=== PATIENT | male | born 1980 | race Caucasian/White ===

== ENCOUNTER 2022-10-18 05:31 | Emergency (ER) | payer MEDICAID, SELFPAY ==
[2022-10-18 05:37] VITALS: BP 150/102; PULSE 70; RESP 18; TEMP 36.9; O2SAT 98; BMI 31.3
--- NOTE | 2022-10-18 06:32 | ED.DENTAL ---
HPI - Dental/Oral General Chief complaint: Dental/Oral Stated complaint: Toothache Time Seen by Provider: 10/18/22 06:32 Source: patient Mode of arrival: ambulatory Limitations: no limitations History of Present Illness HPI Narrative: 41 yo male presenting with left upper dental pain for the last week. He states he has 2 teeth that are infected. He saw his dentist 4 days ago and was prescribed amoxicillin with no improvement. He states the pain is keeping him up at night. No fevers, chills, difficulty opening the jaw, facial swelling. MD Complaint: tooth pain Location: Tooth # (13/14) Onset (ago): week(s) Duration: constant Severity: severe Relieving factors: nothing Context: history of dental caries and poor dental care Associated symptoms: gum swelling Treatment prior to arrival: oral analgesic Related Data Previous Rx's Medication Instructions Recorded clindamycin HCl 300 mg capsule 300 mg PO Q6H 7 days #28 caps 10/18/22 hydrocodone 5 mg-acetaminophen 325 1 tab PO Q6H PRN severe pain 10/18/22 mg tablet (scale score 7-10) #8 tabs ibuprofen 800 mg tablet 800 mg PO Q8H PRN pain #14 tabs 10/18/22 Allergies Allergy/AdvReac Type Severity Reaction Status Date / Time morphine [MORPHINE] AdvReac Unknown MEMORY LOSS Unverified 11/07/19 15:42 morphine Allergy Unknown Unknown Uncoded 10/18/22 05:40 Review of Systems Review of Systems: Yes all other systems are reviewed and are negative PMFSH Social History Social History Advance Directives: No Advance Directives Information Provided: Yes Physical Exam Vital Signs: Vital Signs: Last Vital Signs Temp 97.9 F 10/18/22 06:43 Pulse 70 10/18/22 06:43 Resp 18 10/18/22 06:43 BP 149/99 H 10/18/22 06:43 Pulse Ox 96 10/18/22 06:43 O2 Del Method Room Air 10/18/22 06:43 BMI result Body Mass Index 31.3 Appearance: Alert. Oriented X3. No acute distress. HEENT: normal external inspection. no facial swelling. poor dentition with multiple decayed teeth. left upper teeth with tenderness of #13 and 14 with associated gingival tenderness, mild swelling, no fluctuance appreciated. no trismus Neck: normal inspection, no swelling CVS: Normal heart rate and rhythm. Pulses normal. Respiratory: No respiratory distress. Skin: Skin warm and dry. Normal skin color. Normal skin turgor. No rashes. Extremities: normal inspection x4, no joint swelling Neuro: Oriented X 3. grossly normal, nonfocal Medical Decision Making Medical Decision Making MDM Narrative: 41 yo male presenting with dental infection. already on amoxicillin x4 days. no trisumus or neck swelling on exam. no palpable fluctuance to indicate I&D today. will start clindamycin, nSAID and norco for severe pain he will follow up with his dentist monday stable for d/c home and outpatient follow up with dental Differential Diagnosis Differential Diagnoses: The differential diagnosis associated with the presentation includes dental abscess, toothache, dental caries External Record Review External record reviewed: Prior outpatient labs Tests considered The following testing was considered but not selected: CT scan of the facial bones considered but given exam without facial swelling, deferred today Prescription Management I considered prescription management with: Pain Medication and Antibiotic Critical Care Time Critical Care Time Critical Care Time: No Discharge Plan Discharge Clinical Impression: Toothache Patient Disposition: Home, Self-Care Instructions: Toothache (ED) Additional Instructions: follow up with your dentist as soon as possible take the prescribed anti-inflammatory medication every 8 hours with food recommend tylenol 975 mg every 8 hours as well take the prescribed narcotic pain medication as needed for severe pain only. do not drive after taking this medication If you develop new or worsening symptoms call 911 or come back to the ER for further evaluation. Prescriptions: New clindamycin HCl 300 mg capsule 300 mg PO Q6H 7 Days Qty: 28 0RF ibuprofen 800 mg tablet 800 mg PO Q8H PRN (Reason: pain) Qty: 14 0RF hydrocodone-acetaminophen 5-325 mg tablet 1 tab PO Q6H PRN (Reason: severe pain (scale score 7-10)) Qty: 8 0RF Rx Instructions: Partial Fill upon patient request. Interventions: ED Discharge Assessment Last Done: 10/18/22 07:12 Discharge Date/Time: 10/18/22 07:12
--- OUTSIDE RECORDS SUMMARY | 2022-10-18 06:40 | XMS_ITS | Continuity of Care Document ---
Author Name Unknown Organization [facility] Address [address] [place] [address]- Care Team Providers Care Police Lieutenant Name Role Phone Toney Samayoa Bem, MD Primary Care Physician Unavailable Encounter [facility] Date(s): 08/05/21 - 09/04/[address] [address] Attending Physician: Beau BENOIT, Ana Paula Banks Referring Physician: Ana Paula Yanez MD Allergies, Adverse Reactions, Alerts Substance Reaction Severity Status aspirin ASTHMA Active morphine MEMORY LOSS Active Medications Albuterol Inhalation, Every 6 hours, PRN Wheezing/Shortness of Breath, 0 Refills, Maintenance, Inhaler Start Date: 01/26/12 Status: Ordered Albuterol 90 mcg Inhaler See Instructions, Scheduled / PRN, 1, units, 1, 0, 1, 12/30/07 10:04:57, Wheezing/Shortness of Breath, Two puffs inhalation Every 4 hours as needed for SOB, ADS OPPTHS Start Date: 12/30/07 Status: Ordered Flovent HFA 2, puffs, Inhalation, 2 times a day, 1 each, 1, 1, 12/30/07 10:07:35, Print JOSE LUIS Number, ADS OPPTHS,[id number], Constant Indicator Start Date: 12/30/07 Status: Ordered Lamictal 100 mg oral tablet See Instructions, 1 tablet By Mouth for 7 days then titrate at the MD's discretion, # 7 tablet, 0 Refills, Maintenance Start Date: 01/26/12 Status: Ordered Lamictal 25 mg oral tablet See Instructions, 2 tablets for a total of 50 mg By Mouth, daily for next 14 days, # 2 tablet, 0 Refills, Maintenance Start Date: 01/26/12 Status: Ordered lamotrigine 25 mg oral tablet See Instructions, 1 tablet daily By Mouth for the first 10 days., # 10 tablet, 0 Refills, Maintenance, Tablet Start Date: 01/26/12 Status: Ordered Mometasone 220, mcg, Inhalation, 2 times a day, 1, each, 2, 0, 2, 12/30/07 10:28:22, 1 puff two times a day, Print JOSE LUIS Number, 

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
[2022-10-18 06:43] VITALS: BP 149/99; PULSE 70; RESP 18; TEMP 36.6; O2SAT 96
== END 2022-10-18 07:12 | disposition home or self-care (01) ==
PROVIDERS: Emergency Provider Emergency Medicine; PCP Internal Medicine
DX: K08.89 Other specified disorders of teeth and supporting structures (principal)
CPT/HCPCS: 99283

== ENCOUNTER 2023-10-28 06:14 | Emergency (ER) | payer OTHER, SELFPAY ==
[2023-10-28 06:27] VITALS: BP 137/94; PULSE 70; RESP 18; TEMP 36.8; O2SAT 95; BMI 32.1
[2023-10-28 06:41] LABS: MANUAL DIFF FLAG NO
[2023-10-28 06:54] LABS: Basophils Absolute Auto 0.1 X10*3/uL (0.0-0.2); Basophils Percent Auto 0.9 % (0-2); Eosinophils Absolute Auto 0.2 X10*3/uL (0.0-0.4); Eosinophils Percent Auto 3.1 % (0-4); Hemoglobin 13.8 g/dl (14.0-18.0); Imm Gran Abs Auto 0.02 X10*3/uL (0.00-0.03); Imm Gran Pct Auto 0.3 % (0.0-0.4); Lymphocytes Absolute Auto 2.1 X10*3/uL (1.2-4.9); Lymphocytes Percent Auto 32.4 % (20-40); Mean Corpuscular HGB Conc 32.9 g/dl (31.0-36.0); Mean Corpuscular Hemoglobin 26.6 pg (27.0-33.0); Mean Corpuscular Volume 81.1 fL (80.0-98.0); Mean Platelet Volume 9.4 fL (9.4-12.4); Monocytes Absolute Auto 0.6 X10*3/uL (0.1-1.2); Monocytes Percent Auto 9.6 % (2-11); Neutrophils Absolute Auto 3.4 x10*3/uL (2.0-8.3); Neutrophils Percent Auto 53.7 % (45-73); Platelet Count 299 X10*3/uL (160-400); Red Blood Count 5.18 X10*6/uL (4.60-5.80); Red Cell Distribution Width 13.3 % (11.0-16.0); White Blood Count 6.4 X10*3/uL (4.8-10.8)
[2023-10-28 06:56] LABS: Alanine Aminotransferase 42 U/L (0-40); Albumin Level 4.1 g/dL (3.5-5.0); Alkaline Phosphatase 82 U/L (39-117); Anion Gap 11 (12-20); Aspartate Amino Transferase 23 U/L (5-37); Bilirubin Total 0.9 mg/dL (0.0-1.0); Blood Urea Nitrogen 17 mg/dL (9-16); Calcium 8.7 mg/dL (8.4-10.2); Carbon Dioxide 25 mmol/L (22-29); Chloride 106 mmol/L (96-108); Creatinine Clr Calc Pharmacy 110.1; Estimated Glomerular Filt Rate > 60; Glucose Random 104 mg/dL (60-115); Potassium 3.6 mmol/L (3.3-5.1); Sodium 138 mmol/L (135-145)
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
[2023-10-28 07:24] LABS: Influenza A PCR NEGATIVE (Negative); Influenza B PCR NEGATIVE (Negative); Resp Syncy Virus RNA Qual PCR NEGATIVE (Negative); SARS COV2 PCR INHOUSE NEGATIVE (Negative)
[2023-10-28 07:52] VITALS: PULSE 64; RESP 18; O2SAT 99
[2023-10-28] MEDS: predniSONE 20 MG TABLET 60 MG PO (07:52)
[2023-10-28] MEDS: Albuterol/Iprat 2.5/0.5MG 3 ML AMPUL.NEB INHALE (07:52)
[2023-10-28 08:00] VITALS: BP 150/78; PULSE 75; RESP 19; TEMP 36.9; O2SAT 95
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
--- NOTE | 2023-10-28 10:11 | PC.NURSE ---
This nurse informed by another RN that patient exited room and left ED . Patient did not have IV access. Provider notified, stating he will call patient
== END 2023-10-28 10:12 | disposition home or self-care (01) ==
PROVIDERS: Emergency Provider Emergency Medicine Emergency Medical Services
DX: J45.901 Unspecified asthma with (acute) exacerbation (principal); Z03.818 Encounter for observation for suspected exposure to other biological agents ruled out; R06.02 Shortness of breath
CPT/HCPCS: 0241U; 36415; 80053; 85025; 94640; 99284

== ENCOUNTER 2024-11-23 11:02 | Emergency (ER) | payer OTHER, SELFPAY ==
--- OUTSIDE RECORDS SUMMARY | 2021-01-19 16:40 | XMS_ITS | Encounter Summary ---
Author Organization [facility] Address [address] [place] [id number] Phone Care Team Providers Care Assessment Expert Name Role Phone Pcp, Unknown Primary Care Provider Unavailabl e Encounter Details Date Type Department Care Team (Late st Contact Info) Description 01/19/2021 3:40 PM EST Hospital Encounter [facility] [address] [place] [id number] Gloria Black CNP [address] [place] [address] Social History Tobacco Use Types Packs/Day Years Used Date Smoking Tobacco: Former Cigarettes 0.3 12 04 000 - 2020 Smokeless Tobacco: Never Alcohol Use Standard Drinks/Week Comments Not Currently 0 (1 standard drink = 0.6 oz pur e alcohol) Child or Family Care Answer Date Record ed Do you have problems with on e of the following making it difficult for you to work, study, or receive health care? No 09/15/2023 Education Answer Date Recorded Are you interested in help w ith more adult education (for example, completing high school, GED, job training, learning the [place] language, technical skills, or developing parenting skills)? No 09/15/2023 Are you concerned about learning? Not on file 09/15/2023 No 09/15/2023 Yes 09/15/2023 Food Answer Date Recorded Within the past 6 months we worried whether our food would run out before we got money to buy more. Never True 09/15/2023 Within the past 6 months the food we bought just didn't last and we didn't have enough money to get more. Never True Residential Stability Answer Date Recor ded What is your housing situation today? I have bela anderson 09/15/2023 How many times have you move d in the past 12 months? Zero (I did not move) 09/15/2023 Paying for Meds Answer Date Recorded Do you have trouble paying for medicines? No 09/15/2023 Paying Utility Bills Answer Date Record ed Do you have trouble paying your heating or elect ricity bill? No 09/15/2023 Transportation Answer Date Recorded Has the lack of transportati on kept you from medical appointments or from getting medications? No 09/15/2023 Unemployment Answer Date Recorded Are you currently unemployed or working on a part-time or temporary basis, and looking for work? No 09/15/2023 Digital Access Answer Date Recorded No 09/15/2023 Yes 09/15/2023 Do you have reliable internet access at home? Ye s 09/15/2023 Do you have a device (e.g., phone, tablet, computer) with a working camera? Yes 09/15/2023 Intimate Partner Violence Answer Date R ecorded Denied Basic Needs Not on file 09/15/2023 In the past 12 months have y ou been in a relationship with a person who hurts, threatens, or tries to control you? No 09/15/2023 Worried food would run out Not on file 09/14 In the past 12 months have y ou been in a relationship with a person who hurts, threatens, or tries to control you? No 09/15/2023 Sex and Gender Information Value Date Recorded Sex Assigned at Not on file Legal Sex Male 2:30 PM EST Gender Identity Not on file Sexual Orientation Not on file documented as of this encounter Plan of Treatment Upcoming Encounters Date Type Department Care Team (Late st Contact Info) Description 01/06/2025 11:00 AM EST Office Visit [facility] [address] [place] [address] Garth Correa MD [address] [place] [address] documented as of this encounter Procedures Procedure Name Priority Date/Time Associated Diagnosis Comments XR RIBS 3 OR MORE VIEWS WITH PA CHEST (LEFT) Urgent/patient waiting 01/19/2021 3:54 PM EST Rib pain on left side documented in this encounter Results * XR RIBS 3 OR MORE VIEWS WITH PA CHEST (LEFT) (01/19/2021 3:54 PM EST) Anatomical Region Laterality Modality Chest Computed Radiogr aphy 01/19/2021 4:09 PM EST Impressions 01/19/2021 4:24 PM EST No displaced rib fracture. ATTESTATION: Heraclio Mcdaniel as teaching physician, have reviewed the images for this case and if necessary edited the report originally created by Meek Beck. Narrative 01/19/2021 4:24 PM EST XR RIBS 3 OR MORE VIEWS WITH PA CHEST (LEFT) COMPARISON: None. FINDINGS: No displaced rib fracture. PA evaluation of the chest demonstrates no focal consolidation, pleural effusion, pulmonary edema, or pneumothorax. Cardiomediastinal silhouette is normal. Procedure Note Heraclio Finnegan MD - 01/19/2021 XR RIBS 3 OR MORE VIEWS WITH PA CHEST (LEFT) COMPARISON: None. FINDINGS: No displaced rib fracture. PA evaluation of the chest demonstrates no focal consolidation, pleuraleffusion, pulmonary edema, or pneumothorax. Cardiomediastinal silhouetteis normal. IMPRESSION: No displaced rib fracture. ATTESTATION: Heraclio Mcdaniel as teaching physician, have reviewed theimages for this case and if necessary edited the report originally createdby Meek Beck. Gloria Black ASSOCIATE DIRECTOR OF BIOSTATISTICS IMG XR CHEST Final Resul t documented in this encounter Visit Diagnoses Not on filedocumented in this encounter Care Teams Assessment Expert Relationship Specialty Start Date End Date Pcp, Unknown PCP - General 01/19/21 09/14/23 documented as of this encounter Additional Source Comments The information contained in this document represents components of the legal health record. It is not the complete legal health record.[facility]
[2024-11-23 11:20] VITALS: BP 163/79; PULSE 97; RESP 20; TEMP 36.4; O2SAT 97; BMI 31.3
--- NOTE | 2024-11-23 11:22 | ED_ITS ---
HPI - General Adult General Chief complaint: General Medical Stated complaint: L arm pain, high blood pressure Related Data Previous Rx's ?Medication ?Instructions ?Recorded clindamycin HCl 300 mg capsule 300 mg PO Q6H 7 days #2 8 caps 10/18/22 hydrocodone 5 mg-acetaminophen 325 1 tab PO Q6H PRN se armin pain 10/18/22 mg tablet (scale score 7-10) #8 tabs ibuprofen 800 mg tablet 800 mg PO Q8H PRN pain #14 t abs 10/18/22 fluticasone 250 mcg-salmeterol 50 1 inh inhalation Q12 H #60 ea 10/28/23 mcg/dose blistr powdr for inhalation (Advair Diskus) prednisone 20 mg tablet 60 mg (3 x 20 mg) PO DAILY 5 days 10/28/23 #15 tabs Allergies Allergy/AdvReac Type Severity Reaction Status Date / Time morphine (MORPHINE) AdvReac Unknown MEMORY LOSS Verified 11/23/24 11:28 morphine Allergy Unknown Unknown Uncoded 10/28/23 06:28 [facility] Social History Social History Alcohol intake: former Advance Directives: No Advance Directives Information Provided: No Do you have a plan to hurt others: No Plan Physical Exam ED Vital Signs: Vital Signs - 24 hr 11/23/24 11:20 Temperature 97.5 F Pulse Rate 97 Respiratory Rate 20 Blood Pressure 163/79 H Pulse Oximetry 97 Oxygen Delivery Method Room Air BMI result Body Mass Index 31.3 Course Course Course Narrative: Medical screening exam performed. Please refer to detailed history, exam, evaluation, and management by primary provider. 44-year-old who has a history of postconcussive syndrome, presents for evaluation of headache, hypertension and alcohol and cocaine use last night. Patient also reporting numbness and tingling of the left arm. Labs and imaging ordered. JS Reevaluation(s) Reevaluation #1: [id number] Apparently very shortly after being triaged, the patient was noted by staff to be leaving the emergency department. Area was searched but the patient was not found. Discharge Plan Discharge Clinical Impression: Weakness Patient Disposition: Left W/O Completing Treatment Prescriptions: No Action clindamycin HCl 300 mg capsule 300 mg PO Q6H 7 Days Qty: 28 0RF ibuprofen 800 mg tablet 800 mg PO Q8H PRN (Reason: pain) Qty: 14 0RF hydrocodone-acetaminophen 5-325 mg tablet 1 tab PO Q6H PRN (Reason: severe pain (scale score 7-10)) Qty: 8 0RF Rx Instructions: Partial Fill upon patient request. prednisone 20 mg tablet 60 mg PO DAILY 5 Days Qty: 15 0RF fluticasone propion-salmeterol [Advair Diskus] 250-50 mcg/dose blister with device 1 inh inhalation Q12H Qty: 60 0RF Discharge Date/Time: 11/23/24 11:57
--- NOTE | 2024-11-23 11:40 | MHC.EDTECH ---
called patient no response. Nurse aware.
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
--- OUTSIDE RECORDS SUMMARY | 2024-11-23 11:55 | XMS_ITS | Encounter Summary ---
Author Organization [facility] Address [address] [place] [phone] Phone Care Team Providers Care Phototypesetter Operator Name Role Phone Rubenlily Ortiz CNP Primary Care Provider + Encounter Details Date Type Department Care Team (Late st Contact Info) Description 09/15/2023 Procedure Pass , [address] [address] Social History Tobacco Use Types Packs/Day Years Used Date Smoking Tobacco: Former Cigarettes 0.3 2 000 - 2020 Smokeless Tobacco: Never Alcohol [...] high school, GED, job training, learning the [place] language, technical skills, or developing parenting skills)? [...] your housing situation today? I have bela sing 09/15/2023 How many times have you move [...] on file documented as of this encounter Last Filed Vital Signs Vital Sign Reading Time Taken Comments Blood Pressure - - Pulse - - Temperature - - Respiratory Rate - - Oxygen Saturation - - Inhaled Oxygen Concentration - - Weight 91.2 kg (201 lb) 09/18/2023 10:56 AM EDT Height 170.2 cm (5' 7 ) 09/18/2023 10:56 AM EDT Body Mass Index 31.48 09/18/2023 10:56 AM EDT documented in this encounter Plan of Treatment Upcoming Encounters Date Type Department Care Team ([facility] st Contact Info) Description 01/06/2025 11:00 AM EST Office Visit [facility] Pulmonary, Allergy and Critical Care Medicine [address] [place] [address] Garth Correa MD [address] [place] [address] [email or web address] documented as of this encounter Visit Diagnoses Not on filedocumented in this encounter Additional Health Concerns Assessment Noted Time PHQ-9 Depression Total Score: 14 024 1:34 PM EDT PHQ-2 Depression Total Score: 3 09/15/19 24 1:34 PM EDT documented as of this encounter Care Teams Phototypesetter Operator Relationship Specialty Start Date End Date Kirsten Nicholas CNP [address] [place] [address], [address] [place] [address] [email or web address] PCP - General Nurse Practitioner 09/15/23 documented as of this encounter Additional Source Comments The information contained in this document represents components of the legal health record. It is not the complete legal health record.[facility]
--- OUTSIDE RECORDS SUMMARY | 2024-11-23 11:55 | XMS_ITS | Encounter Summary ---
Author Organization [facility] Address [address] [place] [address] [address] [place] [address] Phone Care Team Providers Care Senior Buyer Name Role Phone Kirsten Nicholas CNP Primary Care Provider + Encounter Details Date Type Department Care Team (Late st Contact Info) Description 07/26/2024 Telephone [facility] [address] [place], [place] [phone] Kirsten Nicholas CNP [address] [place] [address] [email or web address] Social History Tobacco Use Types Packs/Day Years [...] high school, GED, job training, learning the Ethiopian language, technical skills, or developing parenting skills)? [...] Pulmonary, Allergy and Critical Care Medicine [address] [place] [address] Garth Correa MD [address] [place] [address] documented as of this encounter Visit Diagnoses Not on filedocumented in this encounter Additional Health Concerns Assessment Noted Time PHQ-9 Depression Total Score: 14 024 1:34 PM EDT PHQ-2 Depression Total Score: 3 09/15/19 24 1:34 PM EDT documented as of this encounter Care Teams Senior Buyer Relationship Specialty Start Date End Date Kirsten Nicholas CNP [address] [place] [address], [address] [place] [address] [email or web address] PCP - General Nurse Practitioner 09/15/23 documented as of this encounter Additional Source Comments The information contained in this document represents components of the legal health record. It is not the complete legal health record.[facility]
--- OUTSIDE RECORDS SUMMARY | 2024-11-23 11:55 | XMS_ITS | Clinical Summary ---
Author Organization [facility] Address [address] [place] [address] Care Team Providers Care Beater Out Name Role Phone Unavailable Primary Care Provider Unavailabl e Social History Tobacco Use Types Packs/Day Years Used Date Smoking Tobacco: Never Assessed Sex and Gender Information Value Date Recorded Sex Assigned at Not on file Legal Sex Male 5:42 PM EST Gender Identity Not on file Sexual Orientation Not on file Plan of Treatment Health Maintenance Due Date Last Done Comments DTaP,Tdap,and Td Vaccines (1 - Tdap) 1997 Hepatitis B Vaccines (1 of 3 - 19+ 3-dose series) 1997 Depression Screening 02/21/2024 COVID-19 Vaccine (1 - 2023-2 5 season) 2024 Influenza Vaccine (#1) 2024 RSV Immunization Adult Patie nts (1 - 1-dose 75+ series) 2053 HIB Vaccines Aged Out No longer eligi ble based on patient's age to complete this topic HPV Vaccines Aged Out No longer eligi ble based on patient's age to complete this topic Hepatitis A Vaccines Aged Out No long er eligible based on patient's age to complete this topic IPV Vaccines Aged Out No longer eligi ble based on patient's age to complete this topic MMR Vaccines Aged Out No longer eligi ble based on patient's age to complete this topic Meningococcal ACWY Vaccine Aged Out N o longer eligible based on patient's age to complete this topic Meningococcal B Vaccine Aged Out No l onger eligible based on patient's age to complete this topic Pneumococcal Vaccine: Pediat rics (0 to 5 Years) and At-Risk Patients (6 to 49 Years) Aged Out No longer eligible b ased on patient's age to complete this topic RSV Immunization Patients Un nikhil 20 months Aged Out No longer eligible b ased on patient's age to complete this topic Varicella Vaccines Aged Out No longer eligible based on patient's age to complete this topic
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
== END 2024-11-23 11:57 | disposition left against medical advice (07) ==
PROVIDERS: Emergency Provider Emergency Medicine
DX: R53.1 Weakness (principal); Z53.21 Procedure and treatment not carried out due to patient leaving prior to being seen by health care provider
CPT/HCPCS: 99281